=== PATIENT | male | born 1975 | race Hispanic/Latino ===

== ENCOUNTER 2021-09-30 11:28 | Inpatient (IN) | payer BC ==
[2021-09-30 13:50] LABS: Absolute Lymphocytes (CBC) 1.2 K/uL (0.7-4.9); Basophils % 0.2 % (0-1.3); Hematocrit 47.7 % (39.6-49.0); Lymphocytes % 13.4 % (15.3-44.8); MPV 7.6 fL (7.6-11.3); RBC Red Blood Cell Count 5.59 M/uL (4.33-5.43)
[2021-09-30 13:58] LABS: Bilirubin Direct 0.2 mg/dL (0-0.2); Bilirubin Total 0.9 mg/dL (0.2-1.0); Potassium 3.7 mmol/L (3.5-5.1); Protein, Total 8.6 g/dL (6.4-8.2)
[2021-09-30] MEDS ORDERED: MORPHINE 4 MG/ML SYR ONE ×2 (16:09→18:54)
[2021-09-30] MEDS ORDERED: NA CHLORIDE 0.9% 1,000 ML ONE ×2 (16:09→18:54)
[2021-09-30] MEDS ORDERED: ONDANSETRON 4 MG/2 ML VIAL ONE (16:09)
[2021-09-30] MEDS ORDERED: FAMOTIDINE 20 MG/2 ML VIAL IV ONE (16:09)
--- NOTE | 2021-09-30 17:59 | RAD REPORT ---
EXAM DESCRIPTION: CT - Abdomen Pelvis W Contrast - 09/30/2021 5:20 pm CLINICAL HISTORY: ABD PAIN, patient details intermittent epigastric pain and vomiting for 2 days, no surgical history noted by the patient. COMPARISON: No comparisons TECHNIQUE: Biphasic, helical CT imaging of the abdomen and pelvis was performed following 100 ml non -ionic IV contrast. No oral contrast administered. All CT scans are performed using dose optimization technique as appropriate and may include automated exposure control or mA/KV adjustment according to patient size. FINDINGS: No suspicious findings in the lung bases. Mild diffuse fatty infiltration of the liver is present with no focal liver lesion. Subtle fullness o f the pancreatic tail is noted not outside of range of normal. No acute pancreatic process seen. No s plenomegaly or focal splenic finding. Gallbladder and biliary tree are also without suspicious findin g. Symmetric renal function is seen with no hydronephrosis or suspicious renal mass. No pyelonephritis o r acute parenchymal process. No bladder abnormalities. No adrenal abnormalities. No gastric dilatation or gastric wall thickening. Duodenum is unremarkable. Multiple dilated small kristen wel loops are present from mid jejunum to proximal ileum. Dilation is most pronounced in the proximal jejunum. The midline and left abdomen dilated bowel loops show no obstructing mass. No mesenteric ma ss or calcification present. Above transition in the midline abdomen is present without obstructing m ass. Nonspecific enteritis is possible. Configuration of the bowel loops suggests partial bowel obstr uction. Internal hernia or adhesion would be most common although the patient details no intraabdomin al surgery. Distal small bowel is decompressed. Appendix is normal. No acute colon finding present. No free air, free fluid or inflammatory stranding. No bulky lymphadenopathy. No abdominal wall braden ia. No discrete mass lesions seen. Patient has only a few nonspecific small mesenteric lymph nodes. No suspicious bony findings. No acute vascular finding. Patient has very little atherosclerotic calcification. No occluded mesente kenneth vasculature. Mesenteric ischemia is not suspected. IMPRESSION: Multiple dilated small bowel loops from the mid jejunum to proximal ileum within the mid and left side abdomen. There is no small bowel mass, mesenteric mass or calcification. Patient has o nly a few small mesenteric lymph nodes. Finding may represent a pronounced enteritis or ileus. Configuration of the bowel suggest mechanical obstruction typically seen with adhesion or internal hernia. However, patient details no intraabdomin al surgery. No free air, pneumatosis or other surgically emergent finding.
--- NOTE | 2021-09-30 18:11 | ER ---
Nurse's Notes [facility] Name: Valentin Matthews Age: 46 yrs Sex: Male : 1975 Arrival Date: 09/30/2021 Time: 11:35 Bed 18 Private MD: Diagnosis: Nausea with vomiting, unspecified;Ileus, unspecified;Diarrhea, unspecified Presentation: 09/30 13:26 Chief complaint: Patient states: N/V. Upper abdominal pain since yesterday. I have been ld1 burping a lot and its making me throw up. Coronavirus screen: At this time, the client does not indicate any symptoms associated with coronavirus-19. Ebola Screen: No symptoms or risks identified at this time. Initial Sepsis Screen: Does the patient meet any 2 criteria? No. Patient's initial sepsis screen is negative. Does the patient have a suspected source of infection? No. Patient's initial sepsis screen is negative. Risk Assessment: Do you want to hurt yourself or someone else? Patient reports no desire to harm self or others. Onset of symptoms was September 30, 2021. 13:26 Method Of Arrival: Ambulatory ld1 13:26 Acuity: SURESH 3 ld1 Triage Assessment: 13:30 General: Appears in no apparent distress. comfortable, Behavior is calm, cooperative, ld1 appropriate for age. Pain: Complains of pain in epigastric area, right upper quadrant and left upper quadrant Pain does not radiate. Pain currently is 10 out of 10 on a pain scale. Quality of pain is described as burning, crampy, Pain began gradually, Is continuous. EENT: No signs and/or symptoms were reported regarding the EENT system. Neuro: Level of Consciousness is awake, alert, obeys commands, Oriented to person, place, time, situation. Cardiovascular: Capillary refill < 3 seconds Patient's skin is warm and dry. Respiratory: Airway is patent Respiratory effort is even, unlabored, Respiratory pattern is regular, symmetrical. GI: Abdomen is round non-distended, Reports upper abdominal pain, nausea, vomiting. : No signs and/or symptoms were reported regarding the genitourinary system. Derm: No signs and/or symptoms reported regarding the dermatologic system. Musculoskeletal: No signs and/or symptoms reported regarding the musculoskeletal system. Historical: - Allergies: 13:30 No Known Allergies; ld1 - Home Meds: 13:30 Lisinopril Oral [Active]; ld1 - PMHx: 13:30 Hypertensive disorder; Hypercholesterolemia; ld1 - PSHx: 13:30 None; ld1 - Immunization history:: Adult Immunizations not up to date, Client reports receiving the 2nd dose of the Covid vaccine. - Social history:: Smoking status: Patient denies any tobacco usage or history of. Patient uses alcohol, occasionally. Patient/guardian denies using street drugs. Screenin:30 Abuse screen: Denies threats or abuse. Denies injuries from another. sl2 16:30 Nutritional screening: No deficits noted. Tuberculosis screening: No symptoms or risk sl2 factors identified. Fall Risk None identified. Assessment: 22:06 General: Appears in no apparent distress. comfortable, Behavior is calm, cooperative. sm5 Neuro: Level of Consciousness is awake, alert, Oriented to person, place, time, situation. Cardiovascular: No deficits noted. Respiratory: Airway is patent Trachea midline Respiratory effort is even, unlabored. GI: Reports nausea, vomiting. 23:08 Reassessment: No changes from previously documented assessment. 5 Vital Signs: 13:26 BP 151 / 116; Pulse 98; Resp 18; Temp 97.4(TE); Pulse Ox 95% on R/A; Weight 120.2 kg; ld1 Height 5 ft. 9 in. (175.26 cm); Pain 10/10; 16:30 BP 136 / 82; Pulse 83; Resp 17; Pulse Ox 99% on R/A; sl2 17:30 BP 130 / 83; Pulse 79; Resp 18; Pulse Ox 100% on R/A; sl2 18:30 BP 142 / 86; Pulse 88; Resp 16; Temp 97.8; Pulse Ox 99% ; sl2 19:15 BP 142 / 86; Pulse 83; Resp 18; Pulse Ox 96% on R/A; sm5 20:15 BP 147 / 81; Pulse 79; Resp 18; Pulse Ox 95% ; sm5 21:30 BP 113 / 67; Pulse 77; Resp 18; Pulse Ox 95% ; sm5 22:30 BP 133 / 78; Pulse 79; Resp 14; Pulse Ox 94% ; sm5 13:26 Body Mass Index 39.13 (120.20 kg, 175.26 cm) 1 ED Course: 11:35 Patient arrived in ED. kc5 13:30 Triage completed. ld1 13:30 Arm band placed on right wrist. ld1 13:34 Inserted saline lock: 20 gauge in left antecubital area, using aseptic technique. Blood ld1 collected. 15:44 Salvador Farah PA is PHCP. cp 15:44 Salvador Barker MD is Attending Physician. cp 16:05 Katherine Angel, NAVI is Primary Nurse. sl2 16:30 Patient has correct armband on for positive identification. sl2 16:30 No provider procedures requiring assistance completed. sl2 17:21 CT Abd/Pelvis - IV Contrast Only In Process Unspecified. EDMS 18:10 Vitor De is Hospitalizing Provider. cp 22:07 COVID-19/FLU A+B (Document "Date of Onset" if Symptomatic) Sent. 5 23:30 Patient admitted, IV remains in place. 5 Administered Medications: 16:10 Drug: Zofran (Ondansetron) 4 mg Route: IVP; Site: left antecubital; sl2 16:32 Follow up: Response: No adverse reaction sl2 16:10 Drug: NS 0.9% 1000 ml Route: IV; Rate: 1 bolus; Site: left antecubital; sl2 16:32 Follow up: Response: No adverse reaction; IV Status: Infusion continued sl2 16:14 Drug: Pepcid (famotidine) 20 mg Route: IVP; Site: left antecubital; sl2 16:32 Follow up: Response: No adverse reaction sl2 16:18 Drug: morphine 4 mg Route: IVP; Site: left antecubital; sl2 16:33 Follow up: Response: No adverse reaction; Marked relief of symptoms sl2 19:06 CANCELLED (Other Intervention Used): Cipro (ciprofloxacin) 400 mg 200 ml IVPB once over la1 60 mins 19:06 CANCELLED (Other Intervention Used): metroNIDAZOLE 500 mg 100 ml IVPB once over 30 mins la1 19:06 Drug: morphine 4 mg Route: IVP; Site: left antecubital; ld1 19:06 Drug: NS 0.9% 1000 ml Route: IV; Rate: 125 ml/hr; Site: left antecubital; ld1 20:07 Drug: Zosyn (piperacillin-tazobactam) 3.375 grams Route: IVPB; Infused Over: 60 mins; [facility] Site: left antecubital; 21:15 Follow up: IV Status: Completed infusion; IV Intake: 100ml [facility] Intake: 21:15 IV: 100ml; Total: 100ml. [facility] Outcome: 18:11 Decision to Hospitalize by Provider. cp 23:29 Admitted to Med/surg accompanied by tech, via wheelchair, with chart, Report called to [facility] Rola MCELROY 23:29 Condition: stable 23:29 Instructed on the need for admit. 23:30 Patient left the ED. [facility] Signatures: Dispatcher [employer] EDMS Salvador Farah PA PA cp Katy Christianson, RN RN ld1 Katherine Angel RN RN sl2 Kylie Maza Sarah, RN RN 5 Kaushal Arenas CHANNEL REBUILDER-Cla1 Corrections: (The following items were deleted from the chart) 19:12 19:08 Zosyn (piperacillin-tazobactam) 3.375 grams IVPB in left antecubital over 60 mins [facility]2
--- NOTE | 2021-09-30 18:11 | EDPHYS ---
Physician Documentation [facility] [place], [place] Name: Valentin Matthews Age: 46 yrs Sex: Male : 1975 Arrival Date: 09/30/2021 Time: 11:35 Bed 18 Private MD: ED Physician Salvador Barker HPI: 09/30 15:54 This 46 yrs old Male presents to ER via Ambulatory with complaints of cp Vomiting, Abdominal Pain. 15:54 The patient presents to the emergency department with vomiting, that is intermittent, cp described as bilious, diarrhea, that is intermittent, abdominal pain, of the epigastric and upper abdomen, described as intermittent, and does not radiate. Onset: The symptoms/episode began/occurred for the past several days. Possible causes: unknown. Historical: - Allergies: 13:30 No Known Allergies; ld1 - Home Meds: 13:30 Lisinopril Oral [Active]; ld1 - PMHx: 13:30 Hypertensive disorder; Hypercholesterolemia; ld1 - PSHx: 13:30 None; ld1 - Immunization history:: Adult Immunizations not up to date, Client reports receiving the 2nd dose of the Covid vaccine. - Social history:: Smoking status: Patient denies any tobacco usage or history of. Patient uses alcohol, occasionally. Patient/guardian denies using street drugs. ROS: 16:00 Constitutional: Negative for body aches, chills, fever, poor PO intake. cp 16:00 Eyes: Negative for injury, pain, redness, and discharge. cp 16:00 ENT: Negative for ear pain, sore throat, difficulty swallowing, difficulty handling secretions. 16:00 Cardiovascular: Positive for radiating pain to chest, Negative for edema, palpitations. 16:00 Respiratory: Negative for cough, shortness of breath, wheezing. 16:00 Abdomen/GI: Positive for abdominal pain, nausea and vomiting, diarrhea, Negative for constipation. 16:00 Back: Negative for pain at rest, pain with movement. 16:00 Neuro: Negative for dizziness, headache, syncope, weakness. 16:00 All other systems are negative. Exam: 16:05 Constitutional: The patient appears in no acute distress, alert, awake, cp non-diaphoretic, non-toxic, well developed, well nourished, obese, uncomfortable. 16:05 Head/Face: Normocephalic, atraumatic. cp 16:05 Eyes: Periorbital structures: appear normal, Conjunctiva: normal, no exudate, no injection, Sclera: no appreciated abnormality, Lids and lashes: appear normal, bilaterally. 16:05 ENT: External ear(s): are unremarkable, Nose: is normal, Mouth: Lips: moist, Oral mucosa: moist, Posterior pharynx: Airway: no evidence of obstruction, patent. 16:05 Chest/axilla: Inspection: normal, Palpation: crepitus, tenderness, is not appreciated. 16:05 Cardiovascular: Rate: normal, Rhythm: regular, Edema: is not appreciated, JVD: is not appreciated. 16:05 Respiratory: the patient does not display signs of respiratory distress, Respirations: normal, no use of accessory muscles, no retractions, labored breathing, is not present, Breath sounds: are clear throughout, no decreased breath sounds, no stridor, no wheezing. 16:05 Abdomen/GI: Inspection: distension, that is mild, Bowel sounds: active, all quadrants, Palpation: soft, in all quadrants, moderate abdominal tenderness, in the epigastric area, right upper quadrant and left upper quadrant, rebound tenderness, is not appreciated, voluntary guarding, is elicited in the epigastric area. 16:05 Back: ROM is normal, CVA tenderness, is absent. 16:05 Neuro: Orientation: is normal, Mentation: is normal, Motor: moves all fours, strength is normal, Gait: is steady. 16:58 ECG was reviewed by the Attending Physician. cp Vital Signs: 13:26 BP 151 / 116; Pulse 98; Resp 18; Temp 97.4(TE); Pulse Ox 95% on R/A; Weight 120.2 kg; ld1 Height 5 ft. 9 in. (175.26 cm); Pain 10/10; 16:30 BP 136 / 82; Pulse 83; Resp 17; Pulse Ox 99% on R/A; sl2 17:30 BP 130 / 83; Pulse 79; Resp 18; Pulse Ox 100% on R/A; sl2 18:30 BP 142 / 86; Pulse 88; Resp 16; Temp 97.8; Pulse Ox 99% ; sl2 19:15 BP 142 / 86; Pulse 83; Resp 18; Pulse Ox 96% on R/A; sm5 20:15 BP 147 / 81; Pulse 79; Resp 18; Pulse Ox 95% ; sm5 21:30 BP 113 / 67; Pulse 77; Resp 18; Pulse Ox 95% ; sm5 22:30 BP 133 / 78; Pulse 79; Resp 14; Pulse Ox 94% ; sm5 13:26 Body Mass Index 39.13 (120.20 kg, 175.26 cm) ld1 MDM: 15:46 [facility] 16:00 Differential diagnosis: gastritis, cholecystitis, pancreatitis, appendicitis, cp diverticulitis, viral gastroenteritis, gastroenteritis. 18:05 Data reviewed: vital signs, nurses notes, lab test result(s), radiologic studies, CT cp scan. 18:05 Physician consultation: Carloz Cadet MD was called at 18:05, was contacted at 18:05, regarding consult, patient's condition, would like admission per Dr. Kaushal Arenas. 09/30 13:24 Order name: Basic Metabolic Panel; Complete Time: 15:45 ld1 09/30 15:45 Interpretation: Normal except: GLUC 124; BUN 20; GFR 63. 09/30 13:24 Order name: CBC with Diff; Complete Time: 15:45 ld1 09/30 13:24 Order name: Hepatic Function; Complete Time: 15:45 ld1 09/30 13:24 Order name: Lipase; Complete Time: 15:45 1 09/30 15:54 Order name: Troponin (emerg Dept Use Only); Complete Time: 17:59 09/30 18:46 Order name: COVID-19/FLU A+B (Document "Date of Onset" if Symptomatic) 09/30 15:54 Order name: CT Abd/Pelvis - IV Contrast Only; Complete Time: 17:59 09/30 18:01 Interpretation: Report reviewed. 09/30 18:47 Order name: COVID-19/FLU A+B EDMS 09/30 13:24 Order name: IV Saline Lock; Complete Time: 13:33 ld1 09/30 13:24 Order name: Labs collected and sent; Complete Time: 13:33 ld1 09/30 15:54 Order name: EKG; Complete Time: 15:54 09/30 15:54 Order name: EKG - Nurse/Tech; Complete Time: 22:07 09/30 18:09 Order name: NPO; Complete Time: 22:07 cp EC:58 Rate is 84 beats/min. Rhythm is regular. MA interval is normal. QRS interval is normal. cp QT interval is normal. T waves are Inverted in lead aVR. Interpreted by me. Reviewed by me. Administered Medications: 16:10 Drug: Zofran (Ondansetron) 4 mg Route: IVP; Site: left antecubital; sl2 16:32 Follow up: Response: No adverse reaction sl2 16:10 Drug: NS 0.9% 1000 ml Route: IV; Rate: 1 bolus; Site: left antecubital; sl2 16:32 Follow up: Response: No adverse reaction; IV Status: Infusion continued sl2 16:14 Drug: Pepcid (famotidine) 20 mg Route: IVP; Site: left antecubital; sl2 16:32 Follow up: Response: No adverse reaction sl2 16:18 Drug: morphine 4 mg Route: IVP; Site: left antecubital; sl2 16:33 Follow up: Response: No adverse reaction; Marked relief of symptoms sl2 19:06 CANCELLED (Other Intervention Used): Cipro (ciprofloxacin) 400 mg 200 ml IVPB once over la1 60 mins 19:06 CANCELLED (Other Intervention Used): metroNIDAZOLE 500 mg 100 ml IVPB once over 30 mins la1 19:06 Drug: morphine 4 mg Route: IVP; Site: left antecubital; ld1 19:06 Drug: NS 0.9% 1000 ml Route: IV; Rate: 125 ml/hr; Site: left antecubital; ld1 20:07 Drug: Zosyn (piperacillin-tazobactam) 3.375 grams Route: IVPB; Infused Over: 60 mins; sm5 Site: left antecubital; 21:15 Follow up: IV Status: Completed infusion; IV Intake: 100ml sm5 Disposition: 10/01 09:24 Co-signature as Attending Physician, Salvador Barker MD I agree with the assessment and joe plan of care. Disposition Summary: 09/30/21 18:11 Hospitalization Ordered Hospitalization Status: Inpatient Admission cp Provider: Vitor De cp Location: Telemetry/MedSur (Inpatient) cp Condition: Stable cp Problem: new cp Symptoms: have improved cp Bed/Room Type: Standard cp Room Assignment: 204(09/30/21 21:33) cg Diagnosis - Nausea with vomiting, unspecified cp - Ileus, unspecified cp - Diarrhea, unspecified cp Forms: - Medication Reconciliation Form cp - SBAR form cp Signatures: Dispatcher [employer] EDSalvador Acuña MD MD cha Attema, Lee, BLACKTOP SPREADER-C BLACKTOP SPREADER-Cla1 Salvador Farah PA PA cp Emmie Amin, RN RN cg Katy Christianson RN RN ld1 Katherine Angel RN RN sl2 Kristin Chamorro RN RN sm5 Corrections: (The following items were deleted from the chart) 09/30 19: 18:09 Cipro (ciprofloxacin) 400 mg 200 ml IVPB once over 60 mins ordered. cp la1 : 18:09 metroNIDAZOLE 500 mg 100 ml IVPB once over 30 mins ordered. cp la1 19: 19:06 Cipro (ciprofloxacin) 400 mg 200 ml IVPB once over 60 mins ordered. la1 la1 : 19:06 metroNIDAZOLE 500 mg 100 ml IVPB once over 30 mins ordered. la1 la1 18:11 cp cg
--- NOTE | 2021-09-30 18:43 | P.HP ---
Certification for Inpatient Patient admitted to: Inpatient With expected LOS: >2 Midnights Patient will require the following post-hospital care: None Practitioner: I am a practitioner with admitting privileges, knowledge of patient current condition, hospital course, and medical plan of care. Services: Services provided to patient in accordance with Admission requirements found in Title 42 Section 412.3 of the Code of Federal Regulations Patient History Date of Service: 09/30/21 Reason for admission: Partial small bowel obstruction History of Present Illness: 46-year-old male presents emergency room and for 1 day history of nausea, vomiting and epigastric pain. Patient was evaluated in the emergency department labs were significant for white blood cell count 9 hemoglobin 16.3 hematocrit 47.7 GFR [address] abdomen pelvis with IV contrast demonstrates multiple dilated small bowel loops from the mid jejunum to proximal ileum within the mid and left side abdomen. There is no small bowel mass, mesenteric mass or calcification. The patient has only a few small mesenteric lymph nodes, findings may represent a pronounced enteritis or ileus. Configuration of the bowel suggest mechanical obstruction typically seen with adhesion or internal hernia however the patient has no intra-abdominal surgeries. No free air or pneumatosis or other surgically emergent findings are present. Patient still has some epigastric pain, nausea. General surgery was contacted by emergency department provider recommends admission, IV antibiotics, n.p.o. and IV fluids. Patient with only mild epigastric tenderness at this time, will admit for further evaluation and management. Allergies tramadol Allergy (Verified 10/20/12 17:59) Hives NK Allergy (Uncoded 10/04/15 15:12) Unknown - Past Medical/Surgical History -: Hypertension -: Hyperlipidemia -: None Psychosocial/ Personal History: Patient works as an iron rigor, lives at home with his - Family History Father -: Liver disease - Social History Smoking Status: Never smoker Alcohol use: No CD- Drugs: No Caffeine use: Yes Place of Residence: Home Review of Systems 10-point ROS is otherwise unremarkable Gastrointestinal: Nausea, Vomiting, Abdominal Pain Physical Examination - Physical Exam General: Alert, In no apparent distress, Oriented x3 HEENT: Atraumatic, PERRLA, Mucous membr. moist/pink, EOMI, Sclerae nonicteric Neck: Supple, 2+ carotid pulse no bruit, No LAD, Without JVD or thyroid abnormality Respiratory: Clear to auscultation bilaterally, Normal air movement Cardiovascular: Regular rate/rhythm, Normal S1 S2 Gastrointestinal: Normal bowel sounds, Tenderness (Mild epigastric tenderness) Musculoskeletal: No tenderness Integumentary: No rashes Neurological: Normal gait, Normal speech, Normal strength at 5/5 x4 extr, Normal tone, Normal affect Lymphatics: No axilla or inguinal lymphadenopathy - Studies Laboratory Data (last 24 hrs) 09/30/21 13:34: WBC 9.00, Hgb 16.3, Hct 47.7, Plt Count 307 09/30/21 13:34: Sodium 139, Potassium 3.7, BUN 20 H, Creatinine 1.23, Glucose 124 H, Total Bilirubin 0.9, AST 20, ALT 44, Alkaline Phosphatase 73, Lipase 56 L Assessment and Plan - Plan Assessment: Abdominal tenderness, nausea/vomiting secondary to marked enteritis versus ileus versus partial small bowel obstruction Hypertension Hyperlipidemia Plan: Abdominal tenderness, nausea/vomiting secondary to marked enteritis versus ileus versus partial small bowel obstruction: N.p.o., IVF, Cipro, Flagyl, general surgery consult in place. Abdomen with erect x-ray in the morning. Advance diet per surgery. Hypertension: As needed hydralazine until patient is tolerating p.o. than will continue home medication. Hyperlipidemia: Hold oral medications at this time. DVT PPX: SCDs until it is clear patient would not require surgical intervention Code status: Full Discharge Plan: Home Plan to discharge in: 48 Hours - Advance Directives Does patient have a Living Will: No Does patient have a Durable POA for Healthcare: No - Code Status/Comfort Care Code Status Assessed: Yes (Full code) Critical Care: No Time Spent Managing Pts Care (In Minutes): 55
[2021-09-30] MEDS ORDERED: CIPROFLOXACIN 400mg IV 400 MG/200 ML BAG IV ONE (18:54)
[2021-09-30] MEDS ORDERED: metroNIDAZOLE 500 MG TABLET ONE (18:57)
[2021-09-30] MEDS ORDERED: PIPERACIL/TAZO 3.375 GM VIAL IV ONE (19:51)
[2021-09-30] MEDS ORDERED: NA CHLORIDE 0.9% 100 ML ONE (19:55)
[2021-09-30 21:11] LABS: SARS-COV-2 RT PCR NEGATIVE (NEGATIVE)
[2021-09-30] MEDS ORDERED: MORPHINE 2 MG/ML SYR IV PRN (23:11)
[2021-09-30] MEDS ORDERED: HYDRALAZINE HCL 20 MG/ML VIAL IV PRN (23:11)
[2021-09-30] MEDS ORDERED: ONDANSETRON 4 MG/2 ML VIAL IV PRN (23:11)
[2021-09-30 23:52] VITALS: O2SAT 94
[2021-09-30 23:57] VITALS: BMI 38.0
[2021-09-30] MEDS ORDERED: KETOROLAC 30 MG/ML INJ IV ONE (23:58)
[2021-10-01] MEDS: D5.45NS W/KCL 20MEQ 1,000 ML IV SCH ×4 (00:07→23:15)
[2021-10-01] MEDS: PIPER TAZO 3.375 GM in NA CHLORIDE 0.9% 100 ML IV SCH ×3 (01:43→18:48)
[2021-10-01 05:22] LABS: Absolute Lymphocytes (CBC) 1.9 K/uL (0.7-4.9); Basophils % 0.6 % (0-1.3); Hematocrit 41.3 % (39.6-49.0); Lymphocytes % 29.5 % (15.3-44.8); MPV 7.7 fL (7.6-11.3)
[2021-10-01 05:38] LABS: Bilirubin Total 0.7 mg/dL (0.2-1.0); Potassium 3.9 mmol/L (3.5-5.1); Protein, Total 6.8 g/dL (6.4-8.2); Thyroid Stimulating Hormone 2.63 uIU/mL (0.360-3.740)
[2021-10-01 07:13] LABS: Urine Appearance CLEAR (Clear); Urine Blood NEGATIVE (Negative); Urine Color DK YELLOW (Yellow); Urine Glucose NEGATIVE (Negative); Urine Protein NEGATIVE (Negative); Urine Specific Gravity >=1.030 (1.005-1.030); Urine Urobilinogen 0.2 mg/dL (0.2-1.0)
[2021-10-01 07:17] LABS: Urine Bilirubin 1+ (Negative)
[2021-10-01 07:18] LABS: Urine Microscopic Reflex NO UMIC
--- NOTE | 2021-10-01 07:41 | RAD REPORT ---
EXAM DESCRIPTION: RAD - Abdomen W Erect - 10/01/2021 5:44 am CLINICAL HISTORY: Eval SBO COMPARISON: Abdomen Pelvis W Contrast dated 09/30/2021 FINDINGS: Persistent small-bowel dilatation in the left hemiabdomen measuring up to 4.8 cm. Gas seen within the colon and distal small bowel. Contrast is present within the bladder. IMPRESSION: Persistent small bowel dilatation in the left hemiabdomen may reflect a partial small kristen wel obstruction. Downstream gas within the colon would suggest no high-grade obstruction is present. Could consider a Gastrografin challenge with serial abdominal radiography.
[2021-10-01] MEDS ORDERED: KCL 20 MEQ/100 mL IVPB 20 MEQ/100 ML BAG IV SCH (09:00)
--- NOTE | 2021-10-01 11:03 | P.PN ---
Subjective Date of Service: 10/01/21 Chief Complaint: Partial small bowel obstruction Patient states is doing better today. He reports flatus. No BM yet. He denies any nausea. No vomiting since admission. Physical Examination - Vital Signs Temperature: 97.5 F Blood Pressure: 118/75 Pulse: 68 Respirations: 16 Pulse Ox (%): 96 - Physical Exam General: Alert, In no apparent distress, Oriented x3 HEENT: Mucous membr. moist/pink, Sclerae nonicteric Neck: Supple, JVD not distended Respiratory: Clear to auscultation bilaterally, Normal air movement Cardiovascular: No edema, Regular rate/rhythm, Normal S1 S2, No murmurs Gastrointestinal: Hypoactive, Soft and benign, Non-distended, No tenderness, No masses Musculoskeletal: No swelling, No tenderness Integumentary: No rashes, No erythema Neurological: Normal speech, Normal strength at 5/5 x4 extr Lymphatics: No axilla or inguinal lymphadenopathy - Studies Laboratory Data (last 24 hrs) 09/30/21 13:34: WBC 9.00, Hgb 16.3, Hct 47.7, Plt Count 307 09/30/21 13:34: Sodium 139, Potassium 3.7, BUN 20 H, Creatinine 1.23, Glucose 124 H, Total Bilirubin 0.9, AST 20, ALT 44, Alkaline Phosphatase 73, Lipase 56 L Assessment And Plan - Current Problems (Diagnosis) (1) Partial small bowel obstruction Current Visit: Yes Status: Acute (2) Essential hypertension Current Visit: Yes Status: Acute (3) Obesity Current Visit: Yes Status: Acute - Plan General surgery-Dr. Cadet input appreciated. Patient started on clear liquid diet. Continue prophylactic antibiotics. Serial abdominal examination. Holding lisinopril for now as patient is currently normotensive. Monitor and optimize electrolytes. General surgery to follow.
--- NOTE | 2021-10-01 11:44 | CON ---
Date of Consultation: 10/01/2021 Reason For Service: Abdominal pain. History Of Present Illness: This is the case of a 46-year-old patient who comes to us with abdominal pain one day of duration. He remembered he ate some peppers that he normally does not eat. Then, a fter that, 4 hours later, developed nausea, vomiting, abdominal pain, and abdominal distention. He w as trying to then get rid of those peppers and then in the afternoon, he ate some food that had been in the freezer for about 3 days and then he decided to re-heat it, and then his pain got worse, and h e came to the ER. Before that, he did not have any pain and discomfort and denies any trauma. Denie s any dysuria, hematuria, hematochezia, melena. He denies any recent traveling out of the country. Denies any family member sick at home. The patient was seen yesterday in the ER and then admitted to the hospital, and a Surgical consult was obtained. Allergies: TRAMADOL. Past Medical History: Medical problems include hyperlipidemia, hypertension. Social History: He does not smoke. He does not drink alcohol. Family History: Noncontributory. Review of Systems: See H and P. Nausea, vomiting, abdominal pain as above. Physical Examination: General: The patient is awake, alert. Eyes: Pupils are equal and reactive, anicteric. Neck: Supple. Chest: Clear. Abdomen: Soft and depressible. Mildly distended but no guarding or rebound. Rectal: Deferred. Extremities: Good capillary refill. Laboratory Data: Blood work shows WBC count of 6.3, coming down from 9, hemoglobin of 13.9, platelet s of 261. Chemistry shows sodium is 142, chloride is 110, glucose 116, total bilirubin of 0.7, lipas e of 56. CAT scan of the abdomen and pelvis interpreted by Dr. Machado as multiple dilated small bow el loops from the mid jejunum to the proximal ileum. No masses seen. No pneumatosis. Laboratory Data: X-ray today shows the same findings from the x-ray standpoint. Assessment: This 46-year-old patient, comes to us after a meal that he detected as probably the caus e of this problem and his enteritis. He feels better today. He is even hungry. Passing flatus. We do not see any surgical intervention planned for today, but at the same time, we just have to be car eful with the diet. We are going to give him liquid diet. He knows that if he gets nauseous, to sto p right away. If he improved, then we will advance. If he does not improve, then we will do the sma ll-bowel series. He understands. He feels better. Pain is almost gone and he has no nausea today. ANTONY/MITRA Voice ID: [id number] Report ID: [id number]
--- NOTE | 2021-10-01 16:22 | EKG ---
Test Date: 2021-09-30 Test Time: 16:52:02 Coiler Operator: DIO MEASUREMENT RESULTS: Intervals: Rate: 84 TX: 168 QRSD: 92 QT: 368 QTc: 434 [place]: P: 10 TX: 168 QRS: 52 T: 43 INTERPRETIVE STATEMENTS: Normal sinus rhythm Normal ECG No previous ECG available for comparison Electronically Signed On 10-01-21 16:21:12 [employer]AMP [employer] by Darek Cheek
[2021-10-02] MEDS: PIPER TAZO 3.375 GM in NA CHLORIDE 0.9% 100 ML IV SCH ×2 (01:23→08:46)
[2021-10-02 06:13] LABS: Basophils % 0.9 % (0-1.3); Hematocrit 40.5 % (39.6-49.0); Lymphocytes % 39.7 % (15.3-44.8); MPV 7.5 fL (7.6-11.3); RBC Red Blood Cell Count 4.69 M/uL (4.33-5.43)
[2021-10-02 06:47] LABS: Bilirubin Total 0.6 mg/dL (0.2-1.0)
[2021-10-02 06:48] LABS: Protein, Total 6.8 g/dL (6.4-8.2)
[2021-10-02] MEDS ORDERED: NA CHLORIDE 0.9% 100 ML ONE (08:41)
[2021-10-02] MEDS: D5.45NS W/KCL 20MEQ 1,000 ML IV SCH (10:56)
--- NOTE | 2021-10-02 12:17 | P.DS ---
Admission Date: 09/30/21 Discharge Date: 10/02/21 Disposition: ROUTINE DISCHARGE Discharge Condition: FAIR Reason for Admission: Partial small bowel obstruction - Problems (1) Partial small bowel obstruction Current Visit: Yes Status: Acute (2) Essential hypertension Current Visit: Yes Status: Acute (3) Obesity Current Visit: Yes Status: Acute Brief History of Present Illness: 46-year-old male presented to the emergency room and for 1 day history of nausea, vomiting and epigastric pain. Patient was evaluated in the emergency department and labs were significant for white blood cell count 9 hemoglobin 16.3 hematocrit 47.7 GFR [address] abdomen pelvis with IV contrast demonstrated multiple dilated small bowel loops from the mid jejunum to proximal ileum within the mid and left side abdomen. There is no small bowel mass, mesenteric mass or calcification. The patient has only a few small mesenteric lymph nodes, findings may represent a pronounced enteritis or ileus. Configuration of the bowel suggest mechanical obstruction typically seen with adhesion or internal hernia however the patient has no intra-abdominal surgeries. No free air or pneumatosis or other surgically emergent findings present. General surgery-Dr. Cadet was contacted by emergency department provider who recommended admission, IV antibiotics, n.p.o status and IV fluids. Hospital Course: Patient admitted to the medical floor and started on supportive measures. He was also treated with IV antibiotics for possible infective enteritis. Initially kept n.p.o. until her abdominal pain resolved. He was seen by general surgery-Dr. Cadet and patient started on liquid diet which he tolerated. He passed flatus within 24 hours and had a bowel movement today. Patient is currently asymptomatic. He tolerated diet advancement to soft consistency. Patient deemed stable for discharge per Dr. Cadet. He was reporting cough productive of brown sputum. No infiltrate noted on the lower portion of the lungs visualized on the CT abdomen. Patient is discharged with oral Levaquin and Cipro to cover both infectious enteritis and respiratory infection. He will follow with Dr. Cadet within 1 week after discharge. Vital Signs/Physical Exam: Temp Pulse Resp BP Pulse Ox 97.5 F 75 16 135/88 94 10/02/21 08:00 10/02/21 08:00 10/02/21 08:00 10/02/21 08:00 10/02/21 08:00 General: Alert, In no apparent distress, Oriented x3 HEENT: Mucous membr. moist/pink Neck: Supple, JVD not distended Respiratory: Clear to auscultation bilaterally, Normal air movement Cardiovascular: No edema, Regular rate/rhythm, Normal S1 S2, No murmurs Gastrointestinal: Normal bowel sounds, Soft and benign, Non-distended, No tenderness Musculoskeletal: No swelling Integumentary: No rashes Neurological: Normal strength at 5/5 x4 extr Laboratory Data at Discharge: WBC 5.10 K/uL (4.3-10.9) D 10/02/21 05:48 Hgb 13.7 g/dL (13.6-17.9) 10/02/21 05:48 Hct 40.5 % (39.6-49.0) 10/02/21 05:48 Plt Count 273 K/uL (152-406) 10/02/21 05:48 Sodium 138 mmol/L (136-145) 10/02/21 05:48 Potassium 4.0 mmol/L (3.5-5.1) 10/02/21 05:48 BUN 10 mg/dL (7-18) 10/02/21 05:48 Creatinine 0.93 mg/dL (0.55-1.3) 10/02/21 05:48 Glucose 108 mg/dL (74-106) H 10/02/21 05:48 Total Bilirubin 0.6 mg/dL (0.2-1.0) 10/02/21 05:48 AST 32 U/L (15-37) 10/02/21 05:48 ALT 55 U/L (12-78) 10/02/21 05:48 Alkaline Phosphatase 65 U/L (45-117) 10/02/21 05:48 Triglycerides 105 mg/dL (<150) 10/01/21 04:58 Cholesterol 149 mg/dL (<200) 10/01/21 04:58 HDL Cholesterol 59 mg/dL (40-60) 10/01/21 04:58 Cholesterol/HDL Ratio 2.53 10/01/21 04:58 Lipase 56 U/L (73-393) L 09/30/21 13:34 Home Medications: lisinopriL [Lisinopril] 20 mg PO DAILY 09/30/21 levoFLOXacin [Levaquin] 750 mg PO DAILY #7 tab 10/02/21 metroNIDAZOLE [Flagyl] 500 mg PO Q8H #15 tablet 10/02/21 New Medications: metroNIDAZOLE [Flagyl] 500 mg PO Q8H #15 tablet levoFLOXacin [Levaquin] 750 mg PO DAILY #7 tab Diet: AHA Activity: Ad delonte Followup: NONE,NONE [Primary Care Provider] - Carloz Cadte MD [ACTIVE - CAN ADMIT] - 1 Week Time spent managing pt's care (in minutes): 40
[2021-10-02 12:23] VITALS: BP 145/88; TEMP 97.4
--- NOTE | 2021-10-02 17:51 | PN ---
Date of Progress Note: 10/02/2021 Diagnosis: Partial small bowel obstruction. Subjective: The patient is doing better. No nausea. No vomiting. The patient is passing flatus, h aving bowel movement. The abdominal distention has gone and there is no guarding or rebound. Review of Systems: As above. Physical Examination: Abdomen: Benign. Neurologic: The patient is awake, alert, oriented x3. Plan: The patient is tolerating diet, so we are going to advance the diet. He preferred to go home on that diet, so I am agree with that. As soon as he follows in my office, there may have some ned p that we have to be done as an outpatient including a gastrointestinal evaluation. He was advised t o keep soft diet and follow up in office within a week. ANTONY/MITRA Voice ID: [id number] Report ID: [id number]
== END 2021-10-02 16:50 | disposition home or self-care (01) | DRG 389 ==
LOC: ER 11:28 → ERHOLD 18:35 → 2ND 23:00
PROVIDERS: ADMIT Internal Medicine; ATTEND Internal Medicine
DX: K56.600 Partial intestinal obstruction, unspecified as to cause (principal); A09 Infectious gastroenteritis and colitis, unspecified; I10 Essential (primary) hypertension; E78.5 Hyperlipidemia, unspecified; E66.9 Obesity, unspecified; Z68.38 Body mass index [BMI] 38.0-38.9, adult; Z79.899 Other long term (current) drug therapy; Z88.5 Allergy status to narcotic agent; Z20.822 Contact with and (suspected) exposure to COVID-19
CPT/HCPCS: 0240U; 36415; 74019; 74177; 80048; 80053; 80061; 80076; 81003; 83690; 84439; 84443; 84484; 85025; 93005; 96365; 96375; 99285; J0744; J2405; J2543; J3480; J7030; Q9967